=== PATIENT | female | born 1985 | race Caucasian/White ===

== ENCOUNTER 2017-06-24 12:16 | Emergency (ER) ==
[2017-06-24 12:24] VITALS: BP 107/71; TEMP 98.6; BMI 23.6
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
[2017-06-24 13:09] LABS: BILIRUBIN,URINE 1+ (NEGATIVE); KETONES,URINE Negative (NEGATIVE); LEUKOCYTE ESTERASE ,URINE 2+ (NEGATIVE); NITRITE,URINE Negative (NEGATIVE); PROTEIN,URINE 1+ (NEGATIVE); URINE PREGNANCY INTERNAL QC INTERNAL QC VALID; URINE, BLOOD Trace-intact (NEGATIVE)
[2017-06-24 13:12] LABS: ADD URINE MICROSCOPIC YES; BACTERIA,URINE 2+ (NOT PRESENT)
[2017-06-24] MEDS ORDERED: DUONEB NEB STA (13:13)
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
[2017-06-24] MEDS ORDERED: ROCEPHIN IM STA (14:35)
[2017-06-24] MEDS ORDERED: LIDOCAINE 1 % AMP 5 ML (SUTURES) IM STA (14:35)
== END 2017-06-24 15:19 | disposition home or self-care (01) ==
LOC: ED 12:16
DX: N89.8 Other specified noninflammatory disorders of vagina (principal); S00.12XA Contusion of left eyelid and periocular area, initial encounter; M54.9 Dorsalgia, unspecified; R07.89 Other chest pain; T07 Unspecified multiple injuries; R05 Cough; F17.210 Nicotine dependence, cigarettes, uncomplicated; Y04.0XXA Assault by unarmed brawl or fight, initial encounter
CPT/HCPCS: 36415; 81001; 81025; 87086; 87800; 94640; 96372; 99283

== ENCOUNTER 2017-10-01 15:53 | Emergency (ER) ==
[2017-10-01 16:03] VITALS: BP 159/89; TEMP 97.7; BMI 25.0
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
== END 2017-10-01 17:48 | disposition home or self-care (01) ==
LOC: ED 15:53
DX: S09.90XA Unspecified injury of head, initial encounter (principal); S19.9XXA Unspecified injury of neck, initial encounter; S80.12XA Contusion of left lower leg, initial encounter; S80.11XA Contusion of right lower leg, initial encounter; Y04.0XXA Assault by unarmed brawl or fight, initial encounter; F17.210 Nicotine dependence, cigarettes, uncomplicated
CPT/HCPCS: 99282

== ENCOUNTER 2017-12-27 11:45 | Emergency (ER) ==
[2017-12-27 11:57] VITALS: BP 135/87; TEMP 97.5; BMI 26.0
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
== END 2017-12-27 12:34 | disposition home or self-care (01) ==
LOC: ED 11:45
DX: N39.0 Urinary tract infection, site not specified (principal); F17.210 Nicotine dependence, cigarettes, uncomplicated
CPT/HCPCS: 81001; 81025; 87086; 87186; 99283

== ENCOUNTER 2017-12-31 07:38 | Outpatient (CLI) | END 2017-12-31 07:39 | disposition short-term general hospital (02) | LOC: AMBL 07:38 | PROVIDERS: ATTEND Emergency Medicine | DX: S51.811A Laceration without foreign body of right forearm, initial encounter (principal); S30.811A Abrasion of abdominal wall, initial encounter; W26.0XXA Contact with knife, initial encounter ==

== ENCOUNTER 2018-12-06 18:57 | Emergency (ER) | payer MEDICAID, OTHER ==
[2018-12-06 19:04] VITALS: BP 166/110; TEMP 98.5; BMI 29.4
--- NOTE | 2018-12-06 19:12 | ED.PDOC ---
General ED Provider: Dr. ANTHONY MARTINEZ-ER Chief Complaint: Tooth Problem Stated Complaint: my filling fell out and now the tooth is swollen Time Seen by Physician: 19:00 Mode of Arrival: Walk-In Information Source: Patient Exam Limitations: No limitations Primary Care Provider: ANTHONY MARTINEZ Nursing and Triage Documentation Reviewed and Agree: Yes Does patient meet sepsis criteria?: No System Inflammatory Response Syndrome: Not Applicable Sepsis Protocol: For patient's 13 years and over: Temp is 96.8 and below OR 101 and greater Pulse >90 BPM Resp >20/minute Acutely Altered Mental Status Are patient's symptoms suggestive of a new infection, such as: -Pneumonia -Skin, Soft Tissue -Endocarditis -UTI -Bone, Joint Infection -Implantable Device -Acute Abdominal Infection -Wound Infection -Meningitis -Blood Stream Catheter Infection -Unknown EENT Complaint Exam - Dental/Oral Complaint/Exam Mechanism of Injury: No known trauma Onset/Duration: 24 hrs Symptoms Are: Still present Timing: Constant Initial Severity: Mild Current Severity: Moderate Location: left lower premolar Character: Reports: Dull, Aching, Throbbing Aggravating: Reports: Heat, Cold, Chewing Alleviating: Reports: None Associated Signs and Symptoms: Reports: Swelling Tooth Findings: Present: Percussion tenderness, Gross decay, Abcess Cervical Lymphadenopathy Present: No Facial Swelling Present: Yes Bleeding Present: No Oropharynx Findings: Absent: Clots, Active bleeding Septal Hematoma: No Foreign Body Present: No Dysphagia Present: No Drooling Present: No Asymmetrical Tonsillar Swelling Present: No Uvula Midline: Yes Barbara-tonsillar Fluctuence: No Trismus Present: No Palatal Petechiae Present: No Scarlatinaform Rash Present: No Differential Diagnoses: Dental Abcess, Dental Caries Review of Systems - Review Of Systems Constitutional: Reports: No symptoms Eyes: Reports: No symptoms Ears, Nose, Mouth, Throat: Reports: Mouth pain, Mouth swelling Respiratory: Reports: No symptoms Cardiac: Reports: No symptoms GI: Reports: No symptoms : Reports: No symptoms Musculoskeletal: Reports: No symptoms Skin: Reports: No symptoms Neurological: Reports: No symptoms Endocrine: Reports: No symptoms Hematologic/Lymphatic: Reports: No symptoms All Other Systems: Reviewed and Negative Past Medical History - Past Medical History Previously Healthy: Yes Endocrine: Reports: None Cardiovascular: Reports: None Respiratory: Reports: Asthma Hematological: Reports: None Gastrointestinal: Reports: Other (GASTRITIS, ESOPHAGITIS ) Genitourinary: Reports: None Neuro/Psych: Reports: None Musculoskeletal: Reports: None Cancer: Reports: None Last Menstrual Period: 10/2018 - Surgical History General Surgical History: Reports: None - Family History Family History: Reports: None - Social History Smoking Status: Current some day smoker Hx Substance Use: No Alcohol Screening: Occasionally - Immunizations Tetanus Shot up to Date: Yes Physical Exam - Physical Exam Appearance: Well-appearing, No pain distress, Well-nourished Eyes: HARDEEP, EOMI, Conjunctiva clear ENT: Ears normal, Nose normal, Oropharynx normal Neck: Supple Respiratory: Airway patent, Breath sounds clear, Breath sounds equal, Respirations nonlabored Cardiovascular: RRR, Pulses normal, No rub, No murmur GI/: Soft, Nontender, No masses, Bowel sounds normal, No Organomegaly Musculoskeletal: Normal strength Skin: Warm, Dry, Normal color Neurological: Sensation intact, Motor intact, Reflexes intact, Cranial nerves intact, Alert, Oriented Psychiatric: Affect appropriate, Mood appropriate Critical Care Note - Critical Care Note Total Time (mins): 0 Course - Course Vital Signs: Temp Pulse Resp BP Pulse Ox 12/06/18 18:58 98.5 F 106 H 16 166/110 H 99 Departure - Departure Time of Disposition: 19:12 Disposition: HOME SELF-CARE Discharge Problem: Dental abscess Instructions: Dental Abscess (ED) Condition: Good Pt referred to PMD for follow-up: Yes IPMP verified?: No Additional Instructions: clindamycin 300mg qid x 7 days plus medrol dose pack plus norco 7.5mg q 4hrs prn pain #10---f/u dentist ann Allergies/Adverse Reactions: Allergies aspirin Adverse Reaction (Verified 12/06/18 19:04) because of gastritis grass pollen Adverse Reaction (Verified 12/06/18 19:04) Latex, Natural Rubber Adverse Reaction (Verified 12/27/17 12:00) NSAIDS (Non-Steroidal Anti-Inflamma Adverse Reaction (Verified 12/06/18 19:04) because of grass shellfish derived Adverse Reaction (Verified 12/27/17 12:00) Home Medications: Ambulatory Orders Albuterol Sulfate [Proair Hfa] 2 puff IH Q6H PRN #1 inhaler 06/24/17 Alprazolam [Xanax] 1 mg PO TID 12/27/17 Disposition Discussed With: Patient, Family
== END 2018-12-06 19:18 | disposition home or self-care (01) ==
LOC: ED 18:57
DX: K08.89 Other specified disorders of teeth and supporting structures (principal); K04.7 Periapical abscess without sinus
CPT/HCPCS: 99282

== ENCOUNTER 2019-01-25 18:45 | Emergency (ER) ==
[2019-01-25 18:52] VITALS: BP 143/89; TEMP 98.6; BMI 28.6
--- NOTE | 2019-01-25 19:17 | ED.PDOC ---
General ED Provider: Dr. JOI LICEA Chief Complaint: Tooth Problem Stated Complaint: Patient is a 33 year old female who comes to the ER with a history of filling left lower tooth about 1 month ago howerver the filling came out 4 days ago. Since then has been having alot of pain. Time Seen by Physician: 19:15 Mode of Arrival: Walk-In Information Source: Patient Exam Limitations: No limitations Primary Care Provider: ATNHONY MARTINEZ Nursing and Triage Documentation Reviewed and Agree: Yes Does patient meet sepsis criteria?: No System Inflammatory Response Syndrome: Pulse >90 BPM Sepsis Protocol: For patient's 13 years and over: Temp is 96.8 and below OR 101 and greater Pulse >90 BPM Resp >20/minute Acutely Altered Mental Status Are patient's symptoms suggestive of a new infection, such as: -Pneumonia -Skin, Soft Tissue -Endocarditis -UTI -Bone, Joint Infection -Implantable Device -Acute Abdominal Infection -Wound Infection -Meningitis -Blood Stream Catheter Infection -Unknown Review of Systems - Review Of Systems Constitutional: Reports: No symptoms Eyes: Reports: No symptoms Ears, Nose, Mouth, Throat: Reports: Mouth pain, Mouth swelling Respiratory: Reports: No symptoms Cardiac: Reports: No symptoms GI: Reports: No symptoms : Reports: No symptoms Musculoskeletal: Reports: No symptoms Skin: Reports: No symptoms Neurological: Reports: No symptoms Endocrine: Reports: No symptoms Hematologic/Lymphatic: Reports: No symptoms All Other Systems: Reviewed and Negative Past Medical History - Past Medical History Previously Healthy: Yes Endocrine: Reports: None Cardiovascular: Reports: None Respiratory: Reports: Asthma Hematological: Reports: None Gastrointestinal: Reports: Other (GASTRITIS, ESOPHAGITIS ) Genitourinary: Reports: None Neuro/Psych: Reports: None Musculoskeletal: Reports: None Cancer: Reports: None Last Menstrual Period: 2 days - Surgical History General Surgical History: Reports: Other (dental filling ) - Family History Family History: Reports: None - Social History Smoking Status: Current every day smoker, Light tobacco smoker Hx Substance Use: No Alcohol Screening: None - Immunizations Tetanus Shot up to Date: Yes Physical Exam - Physical Exam Appearance: Ill-appearing, Well-nourished Ill-appearing: Mild Pain Distress: Moderate Eyes: HARDEEP, EOMI, Conjunctiva clear ENT: Nose normal Neck: Supple Respiratory: Airway patent, Breath sounds clear, Breath sounds equal, Respirations nonlabored Cardiovascular: RRR, Pulses normal, No rub, No murmur Musculoskeletal: Normal strength, ROM intact, No edema, No calf tenderness Skin: Warm, Dry, Normal color Neurological: Sensation intact, Motor intact, Cranial nerves intact, Alert, Oriented Psychiatric: Affect appropriate, Mood appropriate Critical Care Note - Critical Care Note Total Time (mins): 0 Course - Course Vital Signs: Temp Pulse Resp BP Pulse Ox 01/25/19 18:47 98.6 F 96 H 20 143/89 H 98 Departure - Departure Time of Disposition: 19:30 Disposition: HOME SELF-CARE Discharge Problem: Toothache Instructions: Toothache (ED) Condition: Fair Pt referred to PMD for follow-up: Yes IPMP verified?: Yes (last Hydrocodone was in Nov 2018 from this ER and only got 10 from) Additional Instructions: Follow up with your Dentist as soon as possible Take pain medications as needed Prescriptions: Amoxicillin [Amoxil] 500 mg PO TID #30 capsule Prednisone 20 mg PO DAILYWM #5 tablet Tramadol HCl [Ultram] 50 mg PO Q6H PRN #14 tablet PRN Reason: Severe Pain Allergies/Adverse Reactions: Allergies aspirin Adverse Reaction (Verified 01/25/19 18:55) because of gastritis grass pollen Adverse Reaction (Verified 01/25/19 18:55) Latex, Natural Rubber Adverse Reaction (Verified 01/25/19 18:55) NSAIDS (Non-Steroidal Anti-Inflamma Adverse Reaction (Verified 01/25/19 18:55) because of grass shellfish derived Adverse Reaction (Verified 01/25/19 18:55) Home Medications: Ambulatory Orders Amoxicillin [Amoxil] 500 mg PO TID #30 capsule 01/25/19 Prednisone 20 mg PO DAILYWM #5 tablet 01/25/19 Tramadol HCl [Ultram] 50 mg PO Q6H PRN #14 tablet 01/25/19 Disposition Discussed With: Patient, Family
== END 2019-01-25 19:31 | disposition home or self-care (01) ==
LOC: ED 18:45
DX: K08.89 Other specified disorders of teeth and supporting structures (principal); F17.210 Nicotine dependence, cigarettes, uncomplicated
CPT/HCPCS: 99282

== ENCOUNTER 2019-03-18 13:13 | Emergency (ER) ==
[2019-03-18 13:17] VITALS: BP 143/91; TEMP 98.3; BMI 28.1
[2019-03-18 13:57] LABS: URINE PREGNANCY TEST NEGATIVE (NEGATIVE)
--- NOTE | 2019-03-18 14:38 | DI ---
EXAM: Chest two views HISTORY: Cough COMPARISON: 06/24/2017 TECHNIQUE: Two views of the chest were performed FINDINGS: The lungs are clear. There is no pleural effusion or pneumothorax. The heart is normal i n size. The mediastinal contour is normal. There are no acute abnormalities of the bones. IMPRESSION: No acute cardiopulmonary process.
--- NOTE | 2019-03-18 15:10 | ED.PDOC ---
General ED Provider: Dr. CRISTHIAN AVELAR Chief Complaint: Respiratory Complaint Stated Complaint: cough congestion Time Seen by Physician: 13:13 (RN PRESENT AT ALL TIMES ) Mode of Arrival: Walk-In Information Source: Patient Exam Limitations: No limitations Nursing and Triage Documentation Reviewed and Agree: Yes Does patient meet sepsis criteria?: No System Inflammatory Response Syndrome: Not Applicable Sepsis Protocol: For patient's 13 years and over: Temp is 96.8 and below OR 101 and greater Pulse >90 BPM Resp >20/minute Acutely Altered Mental Status Are patient's symptoms suggestive of a new infection, such as: -Pneumonia -Skin, Soft Tissue -Endocarditis -UTI -Bone, Joint Infection -Implantable Device -Acute Abdominal Infection -Wound Infection -Meningitis -Blood Stream Catheter Infection -Unknown Respiratory Complaint Exam - Respiratory Complaint/Exam Symptoms Are: Still present Timing: Intermittent Initial Severity: Mild Current Severity: Mild Location: Nose, Throat, Chest Character: Reports: Non-productive cough Aggravating: Reports: None Alleviating: Reports: None Associated Signs and Symptoms: Reports: URI, Nasal congestion. Denies: Rapid breathing, Dyspnea, Fever, Chills, Chest pain, Pleuritic chest pain, Wheezing, Hemoptysis, Dizziness, Calf pain, Calf swelling, Edema, Hoarseness, Sinus discomfort, Vomiting, Sore throat, Weight loss, Decreased oral intake, Increased thirst, Increased appetite, Increased urination Related History: Reports: Similar episode History of Healthcare-Acquired Pneumonia: No Related Surgical History: Reports: None Pulmonary Embolism Risk Factors: None Cardiac Risk Factors: Reports: None Pseudomonas Risk Factors: Reports: None Tuberculosis Risk Factors: Reports: None Status Asthmaticus Risk Factors: Reports: None Home Oxygen Use: No Recent Stress Test: No Recent Echo/LV Function: No Current Antibiotic Use: No Current Asthma Medication Use: No Respiratory Distress: None Inadequate Respiratory Effort: No Dysphagia Present: No Stridor Present: No JVD Present: No Accessory Muscle Use: No Retractions: Not Present Diminished Breath Sounds: No Sinus Tenderness: None Grunting Respirations: No Kussmaul Respirations: No Differential Diagnoses: Pneumonia, Bronchitis Review of Systems - Review Of Systems Constitutional: Reports: No symptoms Eyes: Reports: No symptoms Ears, Nose, Mouth, Throat: Reports: No symptoms Respiratory: Reports: Cough Cardiac: Reports: No symptoms GI: Reports: No symptoms : Reports: No symptoms Musculoskeletal: Reports: No symptoms Skin: Reports: No symptoms Neurological: Reports: No symptoms Endocrine: Reports: No symptoms Hematologic/Lymphatic: Reports: No symptoms All Other Systems: Reviewed and Negative Past Medical History - Past Medical History Previously Healthy: Yes Endocrine: Reports: None Cardiovascular: Reports: None Respiratory: Reports: Asthma Hematological: Reports: None Gastrointestinal: Reports: Other (GASTRITIS, ESOPHAGITIS ) Genitourinary: Reports: None Neuro/Psych: Reports: None Musculoskeletal: Reports: None Cancer: Reports: None Last Menstrual Period: last week - Surgical History General Surgical History: Reports: Other (dental filling ) - Family History Family History: Reports: None - Social History Smoking Status: Current every day smoker, Light tobacco smoker Hx Substance Use: No Alcohol Screening: None Physical Exam - Physical Exam Appearance: Well-appearing, No pain distress, Well-nourished Eyes: HARDEEP, EOMI, Conjunctiva clear ENT: Ears normal, Nose normal, Oropharynx normal Respiratory: Rhonchi Cardiovascular: RRR, Pulses normal, No rub, No murmur GI/: Soft, Nontender, No masses, Bowel sounds normal, No Organomegaly Musculoskeletal: Normal strength, ROM intact, No edema, No calf tenderness Skin: Warm, Dry, Normal color Neurological: Sensation intact, Motor intact, Reflexes intact, Cranial nerves intact, Alert, Oriented Psychiatric: Affect appropriate, Mood appropriate Interpretation - Radiology Interpretation Radiology Interpretation By: Radiologist Radiology Results: No acute changes Critical Care Note - Critical Care Note Total Time (mins): 0 Course - Course Orders, Labs, Meds: Lab Review 03/18/19 13:45 Urine Test Negative Orders Category Date Time Status RAPID STREP SCREEN [MOLECULAR GROUP A STREP] Stat LAB 03/18/19 13:40 Completed URINE Stat LAB 03/18/19 13:45 Completed CHEST, 2 VIEWS PA & LAT Stat RADS 03/18/19 13:35 Completed Vital Signs: Temp Pulse Resp BP Pulse Ox 03/18/19 13:13 98.3 F 90 18 143/91 H 96 Departure - Departure Time of Disposition: 15:10 Disposition: HOME SELF-CARE Discharge Problem: Bronchitis Instructions: Acute Bronchitis (ED) Condition: Good Pt referred to PMD for follow-up: Yes IPMP verified?: No Additional Instructions: Please call your Family Physician as soon as possible to schedule a follow-up appointment. Allergies/Adverse Reactions: Allergies aspirin Adverse Reaction (Verified 03/18/19 13:17) because of gastritis grass pollen Adverse Reaction (Verified 03/18/19 13:17) Latex, Natural Rubber Adverse Reaction (Verified 03/18/19 13:17) NSAIDS (Non-Steroidal Anti-Inflamma Adverse Reaction (Verified 03/18/19 13:17) because of grass shellfish derived Adverse Reaction (Verified 03/18/19 13:17) Home Medications: Ambulatory Orders 1 [No Reported Medications] 03/18/19
== END 2019-03-18 15:16 | disposition home or self-care (01) ==
LOC: ED 13:13
DX: J20.9 Acute bronchitis, unspecified (principal); F17.210 Nicotine dependence, cigarettes, uncomplicated
CPT/HCPCS: 81025; 87651; 99283